=== PATIENT | female | born 1975 | race African-American/Black ===

== ENCOUNTER 2021-09-18 06:18 | Inpatient (IN) ==
[2021-09-18] MEDS ORDERED: ONDANSETRON 4 MG/2 ML VIAL IV STA (06:48)
[2021-09-18] MEDS ORDERED: SODIUM CHLORIDE 0.9% 1,000 ML IV STA (06:48)
[2021-09-18] MEDS ORDERED: HYDROmorphone 1 MG/1 ML SYRINGE IV STA (06:48)
[2021-09-18 08:00] LABS: Bilirubin,Urine Negative (Negative); Blood, Urine Moderate mg/dL (Negative); Glucose,Urine (UA) Negative (Negative); Ketones,Urine Negative (Negative); Nitrite,Urine Negative (Negative); Protein,Urine >=300 mg/dL (Negative); Urine Appearance Clear (Clear); Urine Color Yellow (Yellow); Urine Specific Gravity 1.025 (1.001-1.035); Urine Urobilinogen 0.2 eU/dL (<2.0); Urine pH 5.5 (4.5-8.0)
[2021-09-18 08:01] LABS: Mucus,Urine Occasional /LPF (Occasional); RBC,Urine 34 /HPF (0-4); Squamous Epithelial Cell,Urine Occasional /HPF (0-10)
[2021-09-18 08:32] LABS: Alanine Aminotransferase 20 U/L (13-56); Albumin 3.1 G/DL (3.4-5.0); Alkaline Phosphatase 148 U/L (45-117); Aspartate Amino Transferase 12 U/L (0-37); Bilirubin,Total < 0.39 MG/DL (0.20-1.00); Blood Urea Nitrogen 6 MG/DL (7-18); Calcium 8.9 MG/DL (8.5-10.1); Carbon Dioxide 25 MMOL/L (21-32); Chloride 111 MMOL/L (98-107); Glucose 155 MG/DL (74-106); Osmolality,Calculated 281.3 MOS/KG (273-304); Potassium 3.8 MMOL/L (3.5-5.1); Sodium 141 MMOL/L (136-145); Total Protein 7.5 G/DL (6.4-8.2)
[2021-09-18 08:50] LABS: Basophils % 0.2 % (0.0-0.8); Eosinophils % 0.2 % (0.00-10.9); Hematocrit 23.9 VOL% (35.7-47.0); Immature Granulocytes % 0.4 %; Immature Granulocytes Absolute 0.04 #; Lymphocytes # 0.9 10*3/uL (1.4-4.0); Lymphocytes % 8.5 % (21.3-54.2); Mean Corpuscular HGB Conc 25.9 GM/DL (32-36); Mean Corpuscular Volume 54.8 FL (87-102); Monocytes # 0.7 10*3/uL (0.11-0.8); Monocytes % 7.2 % (1.7-12.7); Neutrophils % 83.5 % (38.7-73.9); Platelet Count 462 T/CUMM (130-400); Red Blood Count 4.36 MC/CUMM (3.8-5.5); White Blood Count 10.3 T/CUMM (4-12)
[2021-09-18 09:04] LABS: Hemoglobin 6.2 GM/DL (12.0-16.0)
[2021-09-18] MEDS ORDERED: cefTRIAXone 1,000 MG in SODIUM CHLORIDE 0.9% 100 ML IV STA ×2 (09:14→13:10)
[2021-09-18 09:23] LABS: Hypochromia 2+; Microcytosis 1+; Ovalocytes Few; Target Cells Slight
[2021-09-18 09:24] LABS: Platelet Estimate Increased; Polychromasia Slight
[2021-09-18] MEDS ORDERED: ACETAMINOPHEN 325 MG TABLET PO PRN (13:20)
[2021-09-18] MEDS ORDERED: hydrALAZINE 20 MG/1 ML VIAL IV PRN (13:20)
[2021-09-18] MEDS ORDERED: GLUCAGON 1 MG VIAL IM PRN (13:20)
[2021-09-18] MEDS ORDERED: ONDANSETRON 4 MG/2 ML VIAL IV PRN (13:20)
[2021-09-18] MEDS ORDERED: DEXTROSE 10% 250 ML BAG IV PRN (13:20)
[2021-09-18] MEDS ORDERED: SODIUM CHLORIDE 0.9% 1,000 ML IV PRN (13:32)
[2021-09-18] MEDS: LACTATED RINGERS 1,000 ML IV SCH (13:44)
[2021-09-18 14:22] LABS: % Iron Saturation 2.1 % (18-50); Thyroid Stimulating Hormone 1.78 uIU/ml (0.358-3.74)
[2021-09-18 14:50] LABS: Basophils % 0.1 % (0.0-0.8); Eosinophils % 0.3 % (0.00-10.9); Hematocrit 21.2 VOL% (35.7-47.0); Immature Granulocytes % 0.5 %; Immature Granulocytes Absolute 0.04 #; Lymphocytes # 0.9 10*3/uL (1.4-4.0); Lymphocytes % 12.3 % (21.3-54.2); Mean Corpuscular HGB Conc 25.5 GM/DL (32-36); Mean Corpuscular Volume 55.9 FL (87-102); Monocytes # 0.6 10*3/uL (0.11-0.8); Monocytes % 7.3 % (1.7-12.7); NRBC # 0.02 10*3/uL; Neutrophils % 79.5 % (38.7-73.9); Platelet Count 350 T/CUMM (130-400); Red Blood Count 3.79 MC/CUMM (3.8-5.5); Red Cell Distribution Width 22.7 % (9.3-17.3); White Blood Count 7.6 T/CUMM (4-12)
[2021-09-18 14:51] LABS: Hemoglobin 5.4 GM/DL (12.0-16.0)
[2021-09-18 14:52] LABS: INR 1.2; Partial Thromboplastin Time 36.6 SECS (23.7-32.9)
[2021-09-18 15:19] LABS: Sedimentation Rate-Westergren 47 MM/HR (0-20)
[2021-09-18 15:22] LABS: Anisocytosis 1+; Hypochromia 2+; Macrocytosis 1+; Microcytosis 1+; Platelet Estimate Adequate
[2021-09-18 16:42] LABS: Folate 13.55 NG/ML (5.38-24.0); Vitamin B12 317 PG/ML (211-911)
[2021-09-18] MEDS ORDERED: FERRIC GLUCONATE COMPLEX 125 MG in SODIUM CHLORIDE 0.9% 100 ML IV ONE (17:30)
[2021-09-18] MEDS: DOCUSATE SODIUM 100 MG CAPSULE PO SCH (21:46)
[2021-09-18 22:59] LABS: Hematocrit 24.4 VOL% (35.7-47.0)
[2021-09-18 23:04] LABS: Hemoglobin 6.7 GM/DL (12.0-16.0)
[2021-09-19 06:00] LABS: Albumin 2.6 G/DL (3.4-5.0); Bilirubin,Total 0.4 MG/DL (0.20-1.00); Calcium 8.4 MG/DL (8.5-10.1); Osmolality,Calculated 271.8 MOS/KG (273-304); Total Protein 6.4 G/DL (6.4-8.2)
[2021-09-19 06:12] LABS: Basophils % 0.3 % (0.0-0.8); Eosinophils # 0.1 10*3/uL (0.0-0.87); Eosinophils % 1.3 % (0.00-10.9); Hematocrit 28.4 VOL% (35.7-47.0); Immature Granulocytes % 0.6 %; Immature Granulocytes Absolute 0.04 #; Lymphocytes # 1.1 10*3/uL (1.4-4.0); Lymphocytes % 15.9 % (21.3-54.2); Mean Corpuscular HGB Conc 28.5 GM/DL (32-36); Mean Corpuscular Volume 62.6 FL (87-102); Monocytes # 0.7 10*3/uL (0.11-0.8); Monocytes % 9.4 % (1.7-12.7); Neutrophils % 72.5 % (38.7-73.9); Platelet Count 174 T/CUMM (130-400); Red Blood Count 4.54 MC/CUMM (3.8-5.5); Red Cell Distribution Width 31.6 % (9.3-17.3); White Blood Count 6.9 T/CUMM (4-12)
[2021-09-19 06:14] LABS: Hemoglobin 8.1 GM/DL (12.0-16.0)
[2021-09-19 06:18] LABS: Anisocytosis 1+; Platelet Estimate Normal
[2021-09-19 06:19] LABS: Hypochromia 1+; Ovalocytes Few; Poikilocytosis Slight; Tear Drop Cells Few
[2021-09-19] MEDS: LACTATED RINGERS 1,000 ML IV SCH ×3 (06:44→22:19)
[2021-09-19] MEDS: PANTOPRAZOLE 40 MG TABLET PO SCH (09:32)
[2021-09-19] MEDS: FERRIC GLUCONATE COMPLEX 125 MG in SODIUM CHLORIDE 0.9% 100 ML IV SCH (09:32)
[2021-09-19] MEDS: DOCUSATE SODIUM 100 MG CAPSULE PO SCH ×2 (09:32→21:07)
[2021-09-19] MEDS: cefTRIAXone 2,000 MG in SODIUM CHLORIDE 0.9% 100 ML IV SCH (12:30)
[2021-09-19] MEDS ORDERED: BISACODYL 5 MG TABLET PO ONE (14:15)
[2021-09-20 05:23] LABS: Basophils % 0.3 % (0.0-0.8); Eosinophils # 0.2 10*3/uL (0.0-0.87); Eosinophils % 2.2 % (0.00-10.9); Hematocrit 25.6 VOL% (35.7-47.0); Hemoglobin 7.2 GM/DL (12.0-16.0); Immature Granulocytes % 0.4 %; Immature Granulocytes Absolute 0.03 #; Lymphocytes # 1.4 10*3/uL (1.4-4.0); Lymphocytes % 20.3 % (21.3-54.2); Mean Corpuscular HGB Conc 28.1 GM/DL (32-36); Mean Corpuscular Volume 62.7 FL (87-102); Monocytes # 0.7 10*3/uL (0.11-0.8); Monocytes % 10.9 % (1.7-12.7); NRBC # 0.04 10*3/uL; Neutrophils % 65.9 % (38.7-73.9); Red Blood Count 4.08 MC/CUMM (3.8-5.5); Red Cell Distribution Width 30.7 % (9.3-17.3); White Blood Count 6.7 T/CUMM (4-12)
[2021-09-20 05:27] LABS: Platelet Count 218 T/CUMM (130-400)
[2021-09-20 05:37] LABS: Calcium 8.5 MG/DL (8.5-10.1); Osmolality,Calculated 277.4 MOS/KG (273-304); Potassium 3.5 MMOL/L (3.5-5.1)
[2021-09-20] MEDS: LACTATED RINGERS 1,000 ML IV SCH (06:32)
[2021-09-20 07:17] LABS: Anisocytosis 2+; Hypochromia Slight; Ovalocytes Few; Platelet Estimate Normal; Tear Drop Cells Few
[2021-09-20 08:13] LABS: Hematocrit 26.4 VOL% (35.7-47.0); Hemoglobin 7.5 GM/DL (12.0-16.0)
[2021-09-20] MEDS: DOCUSATE SODIUM 100 MG CAPSULE PO SCH (09:06)
[2021-09-20] MEDS: FERRIC GLUCONATE COMPLEX 125 MG in SODIUM CHLORIDE 0.9% 100 ML IV SCH (09:06)
[2021-09-20] MEDS: PANTOPRAZOLE 40 MG TABLET PO SCH (09:06)
[2021-09-20] MEDS ORDERED: LACTULOSE 20 GM/30 ML UDCUP PO ONE (09:28)
[2021-09-20] MEDS ORDERED: BISACODYL 10 MG SUPP RECTAL ONE (09:29)
[2021-09-20] MEDS: cefTRIAXone 2,000 MG in SODIUM CHLORIDE 0.9% 100 ML IV SCH (11:00)
[2021-09-20 12:14] VITALS: BP 138/77
[2021-09-22 09:53] LABS: Hemoglobin A1 (Alkaline) 68.5 % (96.5-98.5); Hemoglobin A2 (Alkaline) 1.8 % (1.5-3.5)
[2021-09-22 09:54] LABS: Hemoglobin S (Alkaline) 29.7 %
== END 2021-09-20 14:52 | disposition home or self-care (01) | DRG 812 ==
LOC: N.ED 06:18 → N.3E 12:34 → SUATTDRO 12:34 → N.3E 15:06
PROVIDERS: ADMIT Internal Medicine; ATTEND Family Medicine